=== PATIENT | female | born 1960 | race Caucasian/White ===

== ENCOUNTER 2022-03-08 14:39 | Outpatient (CLI) | payer BC | END 2022-03-08 14:40 | disposition home or self-care (01) | LOC: BURRAD 14:39 | PROVIDERS: ATTEND Physician Assistant | DX: R22.41 Localized swelling, mass and lump, right lower limb (principal) ==

== ENCOUNTER 2022-06-07 08:24 | Emergency (ER) | payer BC, OTHER ==
[2022-06-07] MEDS ORDERED: Dexamethasone 4 MG TAB ONE (09:16)
== END 2022-06-07 09:18 | disposition home or self-care (01) ==
LOC: BURERS 08:24
DX: S40.012A Contusion of left shoulder, initial encounter (principal); I10 Essential (primary) hypertension; W01.0XXA Fall on same level from slipping, tripping and stumbling without subsequent striking against object, initial encounter
CPT/HCPCS: J8540